=== PATIENT | male | born 1965 ===

== ENCOUNTER 2017-04-24 06:21 | Day surgery (SDC) | payer OTHER ==
[2017-04-19 11:59] VITALS: BMI 42.4
[2017-04-24] MEDS ORDERED: Lactated Ringer's 1,000 ML IV ONE ×2 (07:21→09:56)
[2017-04-24] MEDS ORDERED: metroNIDAZOLE 500mg/100ml NS 100 ML IVPB ONE (08:58)
[2017-04-24] MEDS ORDERED: Midazolam 2 MG/2 ML VIAL ONE (09:00)
[2017-04-24] MEDS ORDERED: Propofol 10 mg/ml Inj (20 ML) ONE (09:00)
[2017-04-24] MEDS ORDERED: metroNIDAZOLE 500mg/100ml NS IVPB ONE (09:00)
[2017-04-24] MEDS ORDERED: SENSORCAINE 0.5% W/EPINEPHRINE 50ML MDV IJ ONE (09:40)
[2017-04-24] MEDS ORDERED: Bupivacaine-Epi 0.5%-1:200,000 PF Inj IJ ONE ×2 (09:43→10:02)
[2017-04-24] MEDS ORDERED: Oxycodone/Acetaminophen 5/325 mg Tab PO PRN (10:13)
--- NOTE | 2017-04-24 10:16 | PCM.SURG1 ---
Surgeon's Initial Post Op Note - Surgeon's Notes Surgeon: melissa Natural Resource Specialist: radha coleman Type of Anesthesia: General LMA Anesthesia Administered By: johnny Pre-Operative Diagnosis: rectal bleeding Operative Findings: large int and ext hemorrhoids Post-Operative Diagnosis: same Operation Performed: procto sig and hemorrhoidectomy Specimen/Specimens Removed: hemorrhoids Estimated Blood Loss: EBL {In ML}: 75 Blood Products Given: N/A Drains Used: No Drains Post-Op Condition: Good Date of Surgery/Procedure: 04/24/17 Time of Surgery/Procedure: 09:00
--- NOTE | 2017-04-24 10:17 | CP.SDSHP ---
Same Day Surgery H & P - Allergies Allergies: Allergies Penicillins Allergy (Intermediate, Verified 04/24/17 06:42) RASH - Physical Exam Vital Signs: Vital Signs 04/24/17 07:03 Temperature 98.2 F Pulse Rate 79 Respiratory 18 Rate Blood Pressure 130/86 O2 Sat by Pulse 95 Oximetry Short Stay Discharge - Short Stay Discharge Admitting Diagnosis/Reason for Visit: K62.5 Disposition: HOME/ ROUTINE Referrals: Santos Hammonds MD [Primary Care Provider] - Abilio Navarro MD [Staff Provider] - Follow-up: F/U in office 1-2 weeks Instructions: Hemorrhoidectomy (DC) Additional Instructions (Diet, Activity): activity as tolerated. Sitz baths 2-3 x/day, stool softeners, and pain meds as instructed
[2017-04-24] MEDS ORDERED: Lactated Ringer's 1,000 ML IV PRN (10:25)
[2017-04-24] MEDS ORDERED: HYDROmorphone 0.5 mg/0.5 ml ISec IVP PRN (10:25)
[2017-04-24] MEDS ORDERED: DiphenhydrAMINE 50 mg/ml Inj IVP PRN (10:25)
[2017-04-24] MEDS ORDERED: Lactated Ringer's 1,000 ML IV SCH (10:30)
[2017-04-24 12:34] VITALS: RESP 18
[2017-04-24 14:36] VITALS: BP 128/70; PULSE 69; TEMP 98; O2SAT 97
--- NOTE | 2017-04-24 21:35 | OP ---
PROCEDURE DATE: 04/24/2017 PREOPERATIVE DIAGNOSIS: Rectal bleeding. POSTOPERATIVE DIAGNOSES: Rectal bleeding, large external and internal hemorrhoids, status post procedure for prolapse and hemorrhoids. PROCEDURE: Proctosigmoidoscopy and hemorrhoidectomy. SURGEON: Dr. Abilio Navarro. HORSE FARM MANAGER: Dr. Barker and Dr. Nicole. ANESTHESIA: General, LMA. ANESTHESIOLOGIST: Dr. Lua. OPERATING FINDINGS: Prolapse with very large internal and external hemorrhoids. DESCRIPTION OF PROCEDURE: After obtaining informed consent, the patient was taken to the operating room. After a timeout was obtained and induction of general LMA anesthesia, the patient in the lithotomy position, a rigid proctosigmoidoscope was used to visualize the rectum and the sigmoid. The proctosigmoidoscope went all the way into the sigmoid showing no luminal defects, no bleeding. This was done multiple times from the anus all the way up to the sigmoid. Visualizing the anus and just above the dentate line, there were very large hemorrhoids and there was one at 7 o'clock that was bleeding. So, at this point, after prepping and draping the perineum, a Halfmoon retractor was introduced. A T-clamp was used to grasp the area bleeding, which was at the base of the large hemorrhoidal bundle at 7 o'clock. A suture was placed at base of 2-0 chromic and a wedge incision was made using the hemocautery to include the mucosa all the way out to the skin. This was dissected free from the sphincter and at the base, the suture ligation was done of 2-0 chromic to the base of the hemorrhoidal bundle. Once this was done, the mucosa was approximated with a stitch that was placed initially at the base of the bundle. This was done in a running interlocking fashion. At this point, exactly the same procedure was done to the bundle at 5 o'clock and once this was done and making sure the hemostasis was excellent, 20 mL of Marcaine with epinephrine was injected in the perineal area. A Vaseline gauze was placed slightly within the anus and dressing was applied. Blood loss 75 mL. The patient tolerated the procedure very well and was transferred to the recovery room in good general status. Abilio Navarro MD [facility] # [id number]
== END 2017-04-24 14:00 | disposition home or self-care (01) ==
LOC: H.OPSURG 06:21
PROVIDERS: ATTEND Surgery
DX: K62.5 Hemorrhage of anus and rectum (principal); J45.909 Unspecified asthma, uncomplicated; K21.9 Gastro-esophageal reflux disease without esophagitis; I10 Essential (primary) hypertension; D64.9 Anemia, unspecified; K64.8 Other hemorrhoids
CPT/HCPCS: 46255; 88304; J2001; J2250; J2704; J3010; J7030; J7120